=== PATIENT | female | born 1975 | race African-American/Black ===

== ENCOUNTER → 2020-04-18 | Emergency (ER) | payer MEDICAID ==
[~2020-04-18] VITALS: Ht 162.6 cm; Wt 67.6 kg
[~2020-04-18] MED LIST: POTASSIUM EFFERVESENT TAB 25 MEQ GT ONE; POTASSIUM EFFERVESENT TAB 25 MEQ ONE
[2020-04-18 19:16] LABS: Urine Bacteria NONE SEEN /hpf (None Seen); Urine Blood 2+ /uL (Negative); Urine Mucus FEW (None Seen); Urine WBC 1 /hpf (0 - 5)
[2020-04-18 20:06] LABS: Basophils # (auto) 0.1 10 ^3/uL (0-0.2); Basophils % (auto) 0.9 % (0.0-2.0); Eosinophils # (auto) 0.1 10 ^3/uL (0-0.8); Eosinophils % (auto) 0.5 % (0.0-7.0); Hematocrit 43.1 % (36.0-46.0); Hemoglobin 13.7 g/dL (12.2-16.2); Lymphocytes # (auto) 2.8 10 ^3/uL (0.4-5.4); Lymphocytes % (auto) 24.4 % (10.0-50.0); Mean Corpuscular Hemoglobin 25.5 pg (28.0-32.0); Mean Corpuscular Hgb Conc. 31.7 g/dL (32.0-36.0); Mean Corpuscular Volume 80.4 fL (80.0-100.0); Monocytes # (auto) 1.3 10 ^3/uL (0-1.3); Neutrophils # (auto) 7.3 10 ^3/uL (1.6-8.6); Neutrophils % (auto) 63.2 % (37.0-80.0); Nucleated Red Blood Cells % 0.1 %; Platelet Count (auto) 432 10^3/uL (140-450); Red Blood Cells 5.35 10^6/uL (4.0-5.20); White Blood Cell 11.6 10^3/uL (4.4-10.8)
[2020-04-18 20:08] LABS: Red Cell Distribution Width 24.2 % (11.8-14.3)
[2020-04-18 20:25] LABS: Albumin 3.8 g/dL (3.4-5.0); Calcium 10.1 mg/dL (8.5-10.1)
[2020-04-18 20:29] LABS: BUN/Creatinine Ratio 5.2; Bilirubin, Total 0.5 mg/dL (0.2-1.0); Total Protein 8.8 g/dL (6.4-8.2)
[2020-04-18 20:48] LABS: Potassium 2.8 mmol/L (3.5-5.1)
[2020-04-18 21:34] VITALS: BP 130/85
== END | disposition home or self-care (01) ==
LOC: ER 16:10
DX: N20.0 Calculus of kidney (principal); E87.6 Hypokalemia; I10 Essential (primary) hypertension; F17.210 Nicotine dependence, cigarettes, uncomplicated
CPT/HCPCS: 36415; 74176; 80053; 81001; 83690; 85025